=== PATIENT | female | born 1980 | race Caucasian/White ===

== ENCOUNTER 2017-09-01 05:25 | Day surgery (SDC) | payer MEDICAID, OTHER ==
[~2017-09-01] VITALS: Ht 160 cm; Wt 64.3 kg
[2017-09-01] MEDS ORDERED: SODIUM CHLORIDE 0.9% 1,000 ML IV SCH (06:06)
[2017-09-01 06:23] VITALS: BP 144/79
[2017-09-01] MEDS ORDERED: MIDO5TAB PO (06:23)
[2017-09-01] MEDS ORDERED: ATOR40TA78 PO (06:23)
[2017-09-01] MEDS ORDERED: OXYC10TA6 PO (06:23)
[2017-09-01] MEDS ORDERED: ALPR1TAB2 PO (06:23)
[2017-09-01] MEDS ORDERED: SEVE800T8 PO (06:23)
[2017-09-01] MEDS ORDERED: OMEP-110 PO (06:23)
[2017-09-01] MEDS ORDERED: GABAPENTIN PO (06:23)
[2017-09-01] MEDS ORDERED: FURO20TA3 PO (06:23)
[2017-09-01] MEDS ORDERED: NPH,100V SQ (06:35)
[2017-09-01] MEDS ORDERED: NOVOLOG SQ (06:35)
[2017-09-01] MEDS ORDERED: IRON PO (06:35)
[2017-09-01 06:59] LABS: INTERNATIONAL NORMALIZED RATIO 1.18 (0.93-1.1); PROTHROMBIN TIME 12.2 Seconds (9.6-11.5)
[2017-09-01] MEDS ORDERED: PROTAMINE SULFATE 10 MG/ML, 5ML ONE (07:07)
[2017-09-01] MEDS ORDERED: BUPIVACAINE/PF 0.5% ONE (07:07)
[2017-09-01] MEDS ORDERED: THROMBIN 5,000 UNIT VIAL TP ONE (07:07)
[2017-09-01] MEDS ORDERED: HEPARIN 1,000 UNITS/ML, 10ML ONE (07:08)
[2017-09-01] MEDS ORDERED: MIDAZOLAM 1 MG/ML, 2ML ONE ×2 (07:35)
[2017-09-01] MEDS ORDERED: FENTANYL PF 100 MCG/2ML ONE (07:35)
[2017-09-01] MEDS ORDERED: METOCLOPRAMIDE 5 MG/ML, 2ML ONE (07:52)
[2017-09-01] MEDS ORDERED: DEXAMETHASONE 4 MG/ML, 1ML ONE (07:52)
[2017-09-01] MEDS ORDERED: PROPOFOL 10 MG/ML, 20ML ONE (07:52)
[2017-09-01] MEDS ORDERED: ONDANSETRON 2MG/ML, 2ML ONE (07:53)
[2017-09-01] MEDS ORDERED: HYDROmorphone 1 MG/ML, 1ML ONE (08:56)
[2017-09-01] MEDS ORDERED: OXYcodone 5 MG/5 ML ORAL.SOL UDC ONE (08:56)
[2017-09-01] MEDS ORDERED: MIDAZOLAM 1 MG/ML, 2ML IV PRN (09:00)
[2017-09-01] MEDS ORDERED: ONDANSETRON 2MG/ML, 2ML IVPush PRN (09:00)
[2017-09-01] MEDS ORDERED: D5%-0.45% NACL 1,000 ML IV SCH (09:00)
[2017-09-01] MEDS ORDERED: FENTANYL PF 100 MCG/2ML IV PRN (09:00)
[2017-09-01] MEDS ORDERED: MEPERIDINE/PF 25MG/0.5ML IVPush PRN (09:00)
[2017-09-01] MEDS ORDERED: LABETALOL 5MG/ML, 20ML IV PRN (09:00)
[2017-09-01] MEDS: HYDROmorphone 1 MG/ML, 1ML IV PRN ×2 (09:00→09:10)
[2017-09-01] MEDS ORDERED: OXYcodone 5 MG/5 ML ORAL.SOL UDC PO PRN (09:00)
== END 2017-09-01 10:15 ==
LOC: OUT 05:25
PROVIDERS: ATTEND Surgery Vascular Surgery
DX: I12.9 Hypertensive chronic kidney disease with stage 1 through stage 4 chronic kidney disease, or unspecified chronic kidney disease (principal); E10.22 Type 1 diabetes mellitus with diabetic chronic kidney disease; N18.6 End stage renal disease; Z88.6 Allergy status to analgesic agent; Z88.8 Allergy status to other drugs, medicaments and biological substances
CPT/HCPCS: 36415; 36821; 80047; 82962; 84703; 85610; 85730; 93005; J1100; J1170; J1644; J2250; J2704; J2765; J3010; J7030; J2405; J2720; J3490